=== PATIENT | male | born 1950 | race Caucasian/White ===

== ENCOUNTER 2019-10-08 19:14 | Emergency (ER) | payer MEDICARE ==
[~2019-10-08] VITALS: Ht 177.8 cm; Wt 149.9 kg
--- NOTE | 2019-10-08 19:28 | NUR ---
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 BLOOD COLLECTED AND SENT TO LAB
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
[2019-10-08] MEDS ORDERED: HYDROMORPHONE 1 MG/1 ML DISP.SYRIN IV ONE (19:30)
[2019-10-08] MEDS ORDERED: HYDROMORPHONE 1 MG/1 ML DISP.SYRIN ONE (19:30)
--- NOTE | 2019-10-08 19:36 | NUR ---
EKG AT BEDSIDE
[2019-10-08 19:43] LABS: BASOPHILS # (AUTO) 0.1 /CMM (0.0-0.2); BASOPHILS % (AUTO) 0.9 % (0.0-2.0); EOSINOPHILS % (AUTO) 2.4 % (0.0-6.0); HEMATOCRIT 42 % (39-51); HEMOGLOBIN 13.9 g/dL (13.5-17.5); LYMPHOCYTES # (AUTO) 1.2 /CMM (0.8-4.8); LYMPHOCYTES % (AUTO) 16.4 % (20.0-44.0); MEAN CORPUSCULAR HGB CONC 33 g/dl (31.0-36.0); MEAN CORPUSCULAR VOLUME 91 fL (80-96); MONOCYTES # (AUTO) 0.7 /CMM (0.1-1.30); MONOCYTES % (AUTO) 10.5 % (2.0-12.0); NEUTROPHILS % (AUTO) 69.8 % (43.0-81.0); PLATELET COUNT (AUTO) 262 /CMM (150-450); RED BLOOD CELL COUNT(AUTO) 4.64 MIL/uL (4.5-6.0); WHITE BLOOD COUNT (AUTO) 7.1 K/uL (4.3-11.0)
[2019-10-08 19:56] LABS: CALCIUM, SERUM 8.7 mg/dL (8.5-10.1); CREATININE 1.1 mg/dL (0.6-1.3); POTASSIUM 3.9 mmol/L (3.5-5.1)
--- NOTE | 2019-10-08 20:08 | NUR ---
PT BROUGHT TO CT
[2019-10-08] MEDS ORDERED: ONDANSETRON HCL/PF 4 MG/2 ML VIAL ONE (20:19)
[2019-10-08] MEDS ORDERED: ONDANSETRON HCL/PF 4 MG/2 ML VIAL IVP ONE (20:30)
--- NOTE | 2019-10-08 21:29 | NUR ---
AMBULNZ ETA [id number] [facility] [id number]
[2019-10-08] MEDS ORDERED: ONDANSETRON 4 MG TAB.RAPDIS ONE (21:45)
[2019-10-08] MEDS ORDERED: ONDANSETRON 4 MG TAB.RAPDIS PO ONE (22:00)
[2019-10-09 00:06] VITALS: BP 131/101
== END 2019-10-09 00:07 | disposition home or self-care (01) ==
LOC: ER 19:14
DX: S00.83XA Contusion of other part of head, initial encounter (principal); S80.02XA Contusion of left knee, initial encounter; S00.12XA Contusion of left eyelid and periocular area, initial encounter; I10 Essential (primary) hypertension; E11.9 Type 2 diabetes mellitus without complications; I48.91 Unspecified atrial fibrillation; Z90.49 Acquired absence of other specified parts of digestive tract; Z90.5 Acquired absence of kidney; Z60.2 Problems related to living alone; W01.0XXA Fall on same level from slipping, tripping and stumbling without subsequent striking against object, initial encounter; Y93.01 Activity, walking, marching and hiking; Y92.89 Other specified places as the place of occurrence of the external cause; Y99.8 Other external cause status
CPT/HCPCS: 29505; 36415; 70450; 70486; 71045; 73552; 80048; 85025; 85730; 93005; 96374; 96375; 99285; J1170; J2405; Q0162

== ENCOUNTER 2021-07-20 15:39 | Inpatient (IN) | payer MEDICARE, BC ==
[~2021-07-20] VITALS: Ht 182.9 cm; Wt 132.4 kg
--- NOTE | 2021-07-20 16:16 | NUR ---
[id number] HOME C/O LOWER BACK PAIN 03/03 S/P GLF AT 1300 DENIES LOC. WILL CONTINUE TO MONITOR THE PATIENT.
[2021-07-20] MEDS ORDERED: HYDROCODONE/APAP 5/325MG TABLET PO ONE (16:30)
[2021-07-20] MEDS ORDERED: HYDROCODONE/APAP 5/325MG TABLET ONE (16:45)
--- NOTE | 2021-07-20 16:46 | NUR ---
THE PATIENT IS TAKEN TO CT
--- NOTE | 2021-07-20 16:54 | NUR ---
THE PATIENT IS BACK FROM CT
[2021-07-20] MEDS ORDERED: ONDANSETRON HCL/PF 4 MG/2 ML VIAL ONE (17:42)
[2021-07-20] MEDS ORDERED: MORPHINE SULFATE INJ 4 MG/ML DISP.SYRIN ONE (17:43)
--- NOTE | 2021-07-20 17:43 | NUR ---
MATCHER LEATHER PARTS AT PT'S BEDSIDE
[2021-07-20] MEDS ORDERED: MORPHINE SULFATE INJ 2 MG/ML DISP.SYRIN IV ONE (18:00)
[2021-07-20] MEDS ORDERED: ONDANSETRON HCL/PF 4 MG/2 ML VIAL IVP ONE (18:00)
--- NOTE | 2021-07-20 18:24 | NUR ---
PAGED DR KANG, ORTHO SPINE. IR [phone]
--- NOTE | 2021-07-20 18:50 | NUR ---
LAC #20G S/L; PATENT AND INTACT
[2021-07-20 18:58] LABS: BASOPHILS # (AUTO) 0.1 K/uL (0.0-0.2); BASOPHILS % (AUTO) 0.7 % (0.0-2.0); EOSINOPHILS % (AUTO) 1.1 % (0.0-6.0); HEMATOCRIT 37 % (39-51); HEMOGLOBIN 11.8 g/dL (13.5-17.5); LYMPHOCYTES # (AUTO) 0.5 K/uL (0.8-4.8); LYMPHOCYTES % (AUTO) 7.2 % (20.0-44.0); MEAN CORPUSCULAR HGB CONC 32 g/dl (31.0-36.0); MEAN CORPUSCULAR VOLUME 82 fL (80-96); MONOCYTES # (AUTO) 0.6 K/uL (0.1-1.30); MONOCYTES % (AUTO) 8.4 % (2.0-12.0); NEUTROPHILS # (AUTO) 6.1 K/uL (1.8-8.9); NEUTROPHILS % (AUTO) 82.6 % (43.0-81.0); PLATELET COUNT (AUTO) 240 K/uL (150-450); RED BLOOD CELL COUNT(AUTO) 4.49 MIL/uL (4.5-6.0); WHITE BLOOD COUNT (AUTO) 7.4 K/uL (4.3-11.0)
[2021-07-20 19:07] LABS: CALCIUM, SERUM 8.7 mg/dL (8.5-10.1); CARBON DIOXIDE 26 mmol/L (21-32); CHLORIDE 99 mmol/L (98-107); CREATININE 1.4 mg/dL (0.6-1.3); GLUCOSE 223 mg/dL (74-106); POTASSIUM 4.5 mmol/L (3.5-5.1); SODIUM SERUM 133 mmol/L (136-145); UREA NITROGEN, BLOOD 40 mg/dL (7-18)
--- NOTE | 2021-07-20 20:03 | NUR ---
FACE SHEET AND COVID RESULT FAXED TO [facility]ULI[facility]. PHONE FAX
--- NOTE | 2021-07-20 20:06 | NUR ---
FAXED FACE SHEET AND LAB RESULTS TO MARY LOUISE AT [phone]
--- NOTE | 2021-07-20 21:29 | NUR ---
ADLS DONE. NEW MILD SWELLING AND REDNESS NOTED TO L FOREHEAD. APPLIED ICE. PT A/OX4 NO CHANGES IN LOC.
--- NOTE | 2021-07-20 21:36 | NUR ---
NO BEDS AVAILABLE AT [facility] AT THIS TIME. DR. KING NOTIFIED DR. MONTEJO THAT PT WILL BE ADMITTED TO [facility] AND FOR DR. CARLOS TO TRANSFER TOMORROW.
--- NOTE | 2021-07-20 21:48 | NUR ---
RECIEVED [facility] [phone]
--- NOTE | 2021-07-20 22:00 | NUR ---
REPORT GIVEN TO SUNNY ESTEVES FOR EDITA
--- NOTE | 2021-07-20 22:18 | NUR ---
PT TRANSFERRED TO [facility]- VIA HOSPITAL PROTOCOL. VSS. ALL BELONGINGS WITH PT.
[2021-07-20] MEDS ORDERED: SITA50TA PO (22:35)
[2021-07-20] MEDS ORDERED: GLIM1TAB PO (22:35)
[2021-07-20] MEDS ORDERED: DULO60CA45 PO (22:35)
[2021-07-20] MEDS ORDERED: [UNRECOGNIZED DRUG - OTHER] PO (22:35)
[2021-07-20] MEDS ORDERED: OLME20TA13 PO (22:35)
[2021-07-20] MEDS ORDERED: OMEP20TA20 PO (22:35)
[2021-07-20] MEDS ORDERED: LEVO75TA7 PO (22:35)
[2021-07-20] MEDS ORDERED: SOTA80TA26 PO (22:35)
[2021-07-20] MEDS ORDERED: EMPA10TA PO (22:35)
[2021-07-20] MEDS ORDERED: LIOT50TA2 PO (22:35)
--- NOTE | 2021-07-20 22:45 | NUR ---
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
[2021-07-20] MEDS ORDERED: ONDANSETRON HCL/PF 4 MG/2 ML VIAL IVP PRN (23:30)
[2021-07-20] MEDS ORDERED: MAGNESIUM HYDROXIDE 30 ML UDC PO PRN (23:30)
[2021-07-20] MEDS ORDERED: MAG HYDROX/AL HYDROX/SIMETH 30 ML UDC PO PRN (23:30)
[2021-07-20] MEDS ORDERED: HYDROCODONE/APAP 10/325MG TABLET PO PRN (23:30)
[2021-07-20] MEDS ORDERED: HYDROCODONE/APAP 5/325MG TABLET PO PRN (23:30)
[2021-07-20] MEDS ORDERED: Z GUARD REMEDY 2 OZ OINT TP PRN (23:30)
[2021-07-20] MEDS ORDERED: ZOLPIDEM TARTRATE 5 MG TABLET PO PRN (23:30)
[2021-07-20] MEDS ORDERED: DEXTROSE 50%-WATER 50 ML DISP.SYRIN IV PRN (23:30)
[2021-07-20] MEDS ORDERED: ACETAMINOPHEN 325 MG TABLET PO PRN (23:30)
--- NOTE | 2021-07-20 23:30 | NUR ---
RN NOTES: PATIENT REFUSED TAKING PICTURE ON LEFT SACRAL WOUND FOR DOCUMENTATION.
[2021-07-21] MEDS: MORPHINE SULFATE INJ 2 MG/ML DISP.SYRIN IV PRN ×2 (01:29→10:51)
[2021-07-21 04:50] VITALS: BP 148/79
[2021-07-21] MEDS ORDERED: LEVOTHYROXINE SODIUM 75 MCG TABLET PO SCH (07:00)
[2021-07-21] MEDS: INSULIN REGULAR, HUMAN 100 UNIT/ML 3 ML VIAL SQ PRN ×2 (07:01→12:30)
[2021-07-21 07:04] LABS: BASOPHILS % (AUTO) 0.6 % (0.0-2.0); EOSINOPHILS % (AUTO) 0.3 % (0.0-6.0); HEMATOCRIT 38 % (39-51); HEMOGLOBIN 12.1 g/dL (13.5-17.5); LYMPHOCYTES # (AUTO) 0.5 K/uL (0.8-4.8); LYMPHOCYTES % (AUTO) 6.4 % (20.0-44.0); MEAN CORPUSCULAR HGB CONC 32 g/dl (31.0-36.0); MEAN CORPUSCULAR VOLUME 82 fL (80-96); MONOCYTES # (AUTO) 0.4 K/uL (0.1-1.30); MONOCYTES % (AUTO) 5.1 % (2.0-12.0); NEUTROPHILS # (AUTO) 6.6 K/uL (1.8-8.9); NEUTROPHILS % (AUTO) 87.6 % (43.0-81.0); PLATELET COUNT (AUTO) 241 K/uL (150-450); RED BLOOD CELL COUNT(AUTO) 4.55 MIL/uL (4.5-6.0); WHITE BLOOD COUNT (AUTO) 7.5 K/uL (4.3-11.0)
[2021-07-21 07:18] LABS: CALCIUM, SERUM 9.1 mg/dL (8.5-10.1); CREATININE 1.2 mg/dL (0.6-1.3); MAGNESIUM 2.7 mg/dL (1.8-2.4); PHOSPHORUS 4.6 mg/dL (2.5-4.9); POTASSIUM 5.1 mmol/L (3.5-5.1)
[2021-07-21] MEDS ORDERED: BLOOD SUGAR DIAGNOSTIC 1 EACH STRIP IN SCH (07:30)
[2021-07-21] MEDS ORDERED: PANTOPRAZOLE 40 MG TABLET.DR PO SCH (07:30)
--- NOTE | 2021-07-21 07:30 | NUR ---
MS RN OPENING NOTES: RECEIVED PATIENT IN BED AWAKE. ALERT AND ORIENTED X4. NO PAIN NO RESPIRATORY DISTRESS NOTED AT THIS TIME. WITH IV LINE AT LAC #20 SL, INTACT AND PATENT. PATIENT REFUSED TO BE TURNED . SAFETY PRECAUTION IN PLACE. BED IN THE LOWEST POSITION AND LOCKED. SIDE RAILS UPX2 . CALL LIGHT AND TABLE WITHIN REACH . WILL CONTINUE TO MONITOR.
--- NOTE | 2021-07-21 07:32 | NUR ---
RN CLOSING NOTES: PATIENT SLEEP IN BED COMFORTABLY, BED IN LOW POSITION, CALL LIGHTS WITHIN REACH, NO COMPLAIN OF PAIN AND DISCOMFORT AT THIS TIME, WITH IV LINE AT LFA #20 SL, PATIENT IS A/O X4 ABLE TO MAKE NEEDS , ON BED REST, PATIENT KEPT CLEAN AND DRY, ALL NEEDS MET, ENDORSE TO INCOMING SHIFT.
[2021-07-21 07:42] LABS: THYROID STIMULATING HORMONE 0.106 uIU/mL (0.358-3.74)
[2021-07-21 08:00] VITALS: BP 104/64
[2021-07-21] MEDS ORDERED: GLIMEPIRIDE 1 MG TABLET PO SCH (08:00)
[2021-07-21] MEDS ORDERED: OLME1TAB90 PO (08:23)
[2021-07-21] MEDS ORDERED: GLUCERNA SHAKE 237 ML CAN PO SCH (08:30)
[2021-07-21] MEDS ORDERED: DULOXETINE HCL 30 MG CAPSULE.DR PO SCH (09:00)
[2021-07-21] MEDS ORDERED: LINAGLIPTIN 5 MG TABLET PO SCH (09:00)
[2021-07-21] MEDS ORDERED: LIOTHYRONINE SODIUM (25 MCG) 25 MCG TABLET PO SCH (09:00)
[2021-07-21] MEDS ORDERED: ENOXAPARIN SODIUM 40 MG/0.4 ML DISP.SYRIN SQ SCH (09:00)
[2021-07-21] MEDS ORDERED: LOSARTAN POTASSIUM 50 MG TABLET PO SCH (09:00)
[2021-07-21] MEDS ORDERED: SOTALOL HCL 80 MG TABLET PO SCH (09:00)
[2021-07-21 09:19] VITALS: BP 104/64
--- NOTE | 2021-07-21 10:03 | NUR ---
RN NOTES PATIENT IS FOR TRANSFER TO [facility]. REPORT WAS GIVEN TO PAYAL (CHARGE NURSE). PATIENT WILL BE GOING TO ROOM 4430.
--- NOTE | 2021-07-21 15:48 | NUR ---
RN NOTES DISCHARGED PATIENT IN STABLE CONDITION, VITAL SIGNS WITHIN NORMAL LIMITS. IV ACCESS ON LEFT AC G#20, PATENT AND INTACT. PATIENT ENDORSED TO EMT. TRANSFER PAPER WORKS FILLED UP PROPERLY, BELONGINGS ACCOUNTED AND SIGNED FOR. INSTRUCTIONS GIVEN TO PATIENT, INFORMED ROSALIND (FRIEND) OF TRANSFER. PATIENT WAS PICKED UP BY EMT FROM [facility]. PATIENT LEFT UNIT IN STABLE CONDITION. MD AND CHARGE NURSE AWARE OF DISCHARGE.
== END 2021-07-21 11:45 | disposition short-term general hospital (02) | DRG 551 ==
LOC: ER 15:53 → MED 21:52
PROVIDERS: ADMIT Internal Medicine; ATTEND Internal Medicine
DX: S32.019A Unspecified fracture of first lumbar vertebra, initial encounter for closed fracture (principal); N17.0 Acute kidney failure with tubular necrosis; D64.9 Anemia, unspecified; E03.9 Hypothyroidism, unspecified; E11.65 Type 2 diabetes mellitus with hyperglycemia; F32.A Depression, unspecified; I10 Essential (primary) hypertension; I48.91 Unspecified atrial fibrillation; W10.9XXA Fall (on) (from) unspecified stairs and steps, initial encounter; Y92.009 Unspecified place in unspecified non-institutional (private) residence as the place of occurrence of the external cause; Z20.822 Contact with and (suspected) exposure to COVID-19; Z79.84 Long term (current) use of oral hypoglycemic drugs; Z90.5 Acquired absence of kidney; Z85.528 Personal history of other malignant neoplasm of kidney
CPT/HCPCS: 36415; 71045-TC; 72131-TC; 80048-TC; 80061-TC; 82962-TC; 83735-TC; 84100-TC; 84439-TC; 84443-TC; 84481; 85025-TC; 85730-TC; 87081-TC; C9803; G0378; J1650; J1815; J2270; J2405